=== PATIENT | male | born 1940 | race Two or more races ===

== ENCOUNTER 2018-04-27 18:13 | Emergency (ER) | payer OTHER ==
[2018-04-27 18:32] VITALS: BMI 35.4
--- NOTE | 2018-04-27 19:26 | PDOC ---
History of Present Illness - General Chief Complaint: Altered Mental Status Stated Complaint: ALTERED MENTAL STATUS Time Seen by Provider: 04/27/18 19:26 Past History - Past Medical History Allergies/Adverse Reactions: Allergies Allergy/AdvReac Type Severity Reaction Status Date / Time No Known Drug Allergies Allergy Verified 04/27/18 18:29 Home Medications: Ambulatory Orders Amlodipine Besylate [Norvasc] 10 mg PO DAILY 04/26/11 Acetaminophen [Non-Aspirin Pain Relief] 325 mg PO Q4H PRN 09/14/13 Ciprofloxacin [Cipro -] 500 mg PO Q12H 09/14/13 Glipizide [Glipizide ER] 10 mg PO BID 09/14/13 Metoprolol Succinate [Toprol XL -] 100 mg PO DAILY 09/14/13 Phenazopyridine HCl 100 mg PO TID 09/14/13 Anemia: No Asthma: No Cancer: No Cardiac Disorders: Yes CVA: No COPD: No CHF: No Dementia: No Diabetes: Yes GI Disorders: Yes (REFLUX) Disorders: Yes (GROSS HEMATURIA) HTN: Yes Hypercholesterolemia: No Liver Disease: No Seizures: No Thyroid Disease: No - Surgical History Abdominal Surgery: No Appendectomy: No Cardiac Surgery: No Cholecystectomy: No Lung Surgery: No Neurologic Surgery: No Orthopedic Surgery: No - Suicide/Smoking/Psychosocial Hx Smoking History: Never smoked Have you smoked in the past 12 months: No If you are a former smoker, when did you quit?: 1 MONTH AGO Cigars Per Day: 5 Information on smoking cessation initiated: No Hx Alcohol Use: No Drug/Substance Use Hx: No Substance Use Type: None Hx Substance Use Treatment: No *Physical Exam - Vital Signs Last Vital Signs Temp Pulse Resp BP Pulse Ox 98 F 69 16 158/80 96 04/27/18 18:15 04/27/18 18:15 04/27/18 18:15 04/27/18 18:15 04/27/18 18:15 Moderate Sedation - Procedure Monitoring Vital Signs: Procedure Monitoring Vital Signs Temperature 98 F 04/27/18 18:15 Pulse Rate 69 04/27/18 18:15 Respiratory Rate 16 04/27/18 18:15 Blood Pressure 158/80 04/27/18 18:15 O2 Sat by Pulse Oximetry (%) 96 04/27/18 18:15 ED Treatment Course - ADDITIONAL ORDERS Additional order review: Laboratory Results 04/27/18 18:21 POC Glucometer 99 04/27/18 18:21 POC Glucometer 99
--- NOTE | 2018-04-27 20:05 | PDOC ---
History of Present Illness - General Chief Complaint: Altered Mental Status Stated Complaint: ALTERED MENTAL STATUS Time Seen by Provider: 04/27/18 19:26 History Source: Patient, EMS, [facility] Records Exam Limitations: No Limitations - History of Present Illness Initial Comments: 04/27/18 20:02 THe patient is a 77M with a PMH of DM, traumatic subdural, GERD, HLD, seizures, cerebral infarction, dementia, who presents to the ER after being found hypertensive in the MD ([facility]). During this hypertensive episode, the patient remembers being diaphoretic and was found to have a BGL of <30 and given 1mg glucagon with f/u BGL in the 80's. The patient denies fever, chills, nausea, vomiting, CP, SOB, cough, and dysuria. He denies any other acute complaints. Past History - Past Medical History Allergies/Adverse Reactions: Allergies Allergy/AdvReac Type Severity Reaction Status Date / Time No Known Drug Allergies Allergy Verified 04/27/18 18:29 Home Medications: Ambulatory Orders Amantadine HCl [Amantadine] 100 mg PEG BID 04/27/18 Amlodipine Besylate 10 mg PEG DAILY 04/27/18 Carvedilol 25 mg PEG BID 04/27/18 Famotidine 40 mg PEG DAILY 04/27/18 Insulin Lispro [Humalog] 0 unit SQ ASDIR 04/27/18 Insulin NPH [Novolin N Vial] 16 units SQ QID 04/27/18 Oxycodone HCl 10 mg PEG PRN PRN 04/27/18 Phenytoin Oral Suspension [Dilantin Oral Suspension 100 MG/4 ML] 300 mg PEG BID 04/27/18 Polyethylene Glycol 3350 [Miralax (For Daily Use) -] 17 gm PEG DAILY 04/27/18 Sennosides [Senna] 8.6 mg PEG DAILY 04/27/18 Simvastatin 20 mg PEG HS 04/27/18 levETIRAcetam [Keppra Oral Solution -] 1,000 mg PEG BID 04/27/18 Anemia: No Asthma: No Cancer: No Cardiac Disorders: Yes CVA: No COPD: No CHF: No Dementia: No Diabetes: Yes GI Disorders: Yes (REFLUX) Disorders: Yes (GROSS HEMATURIA) HTN: Yes Hypercholesterolemia: No Liver Disease: No Seizures: No Thyroid Disease: No - Surgical History Abdominal Surgery: No Appendectomy: No Cardiac Surgery: No Cholecystectomy: No Lung Surgery: No Neurologic Surgery: No Orthopedic Surgery: No - Suicide/Smoking/Psychosocial Hx Smoking History: Never smoked Have you smoked in the past 12 months: No If you are a former smoker, when did you quit?: 1 MONTH AGO Cigars Per Day: 5 Information on smoking cessation initiated: No Hx Alcohol Use: No Drug/Substance Use Hx: No Substance Use Type: None Hx Substance Use Treatment: No Review of Systems - Review of Systems Able to Perform ROS?: No (AMS) Is the patient limited Kazakh proficient: Yes *Physical Exam - Vital Signs Last Vital Signs Temp Pulse Resp BP Pulse Ox 98 F 69 16 158/80 96 04/27/18 18:15 04/27/18 18:15 04/27/18 18:15 04/27/18 18:15 04/27/18 18:15 - Physical Exam General Appearance: Yes: Nourished, Appropriately Dressed. No: Disheveled HEENT: positive: Normal Voice, Hearing Grossly Normal Respiratory/Chest: positive: Lungs Clear, Normal Breath Sounds. negative: Chest Tender Cardiovascular: positive: Regular Rhythm, Regular Rate, S1, S2. negative: Diastolic Murmur, Systolic Murmur Gastrointestinal/Abdominal: positive: Flat, Soft. negative: Tender Musculoskeletal: negative: CVA Tenderness, CVA Tenderness (R), CVA Tenderness (L ) Integumentary: negative: Erythema, Mottled, Cold, Clammy, Diaphoresis Moderate Sedation - Procedure Monitoring Vital Signs: Procedure Monitoring Vital Signs Temperature 98 F 04/27/18 18:15 Pulse Rate 69 04/27/18 18:15 Respiratory Rate 16 04/27/18 18:15 Blood Pressure 158/80 04/27/18 18:15 O2 Sat by Pulse Oximetry (%) 96 04/27/18 18:15 ED Treatment Course - LABORATORY CBC & Chemistry Diagram: 04/27/18 20:38 04/27/18 20:38 - ADDITIONAL ORDERS Additional order review: Laboratory Results 04/27/18 18:21 POC Glucometer 99 04/27/18 18:21 POC Glucometer 99 - RADIOLOGY Radiology Studies Ordered: Category Date Time Status HEAD CT WITHOUT CONTRAST [CT] Stat CT Scan 04/27/18 19:55 Ordered CHEST X-RAY PORTABLE* [RAD] Stat Radiology 04/27/18 19:55 Ordered Medical Decision Making - Medical Decision Making 04/27/18 21:39 The patient is a 77M with a PMH of MMP who presents to the ER after being found hypertensive in his NH with a low FS. FS in our facility was in the 90's, then in the 70's. Pt is on a glipizide which can cause recurrent hypoglycemic episodes. Given amp of D50. 04/27/18 22:58 FS 113 after D50 at ~2000. Will recheck at 0100 and d/w inpatient team. CBC, CMP , UA, trop negative. 04/28/18 01:31 BG 80. Will admit for hypoglycemic monitoring. Inpt team aware. 04/28/18 01:55 Case d/w inpatient team who does not believe he needs to be observed for BGL. Will give D50 and d/c back to NH. *DC/Admit/Observation/Transfer Diagnosis at time of Disposition: Hypoglycemia - Discharge Dispostion Disposition: HOME Condition at time of disposition: Stable Decision to Admit order: No - Referrals - Patient Instructions Printed Discharge Instructions: Hypoglycemia Additional Instructions: Please discontinue the glipizide and refer to primary care for further diabetic management. Please follow up with your primary care physician in 2-3 days. Please return to the ER if you have any signs or symptoms of chest pain, shortness of breath, uncontrollable fever, chills, nausea, vomiting, numbness, tingling, or weakness in any part of your body, changes in vision, or slurred speech. Please take your medications as prescribed. Please return to the ER if symptoms persist, worsen, or new symptoms arise. - Post Discharge Activity
--- NOTE | 2018-04-27 20:06 | PDOC ---
Attending Attestation - Physicial Exam PE: 04/27/18 20:56 GENERAL: Well-appearing, well-nourished. No apparent distress. HEENT: Normocephalic, atraumatic. PERRL, EOM intact. CARDIOVASCULAR: Normal S1, S2. Regular rate and rhythm. PULMONARY: Clear to auscultation bilaterally. ABDOMEN: Soft, non-distended, non-tender. EXTREMITIES: Normal ROM in all four extremities. No gross deformities. +SKIN: Dry, scaly skin. NEUROLOGICAL: Follows basic commands. - Medical Decision Making 04/28/18 01:35 Patient will be admitted to hospitalist for further evaluation. <Serene Aguilar - Last Filed: 04/28/18 01:37> - Resident Resident Name: Joshua Valdes - ED Attending Attestation I have performed the following: I have examined & evaluated the patient, The case was reviewed & discussed with the resident, I agree w/resident's findings & plan, Exceptions are as noted - HPI HPI: 04/27/18 20:29 this 77 yo male [facility] fr[facility] for hyperglycemia and hypertension [facility]. Upon arrival his BP was about 158/90 but he was hypoglycemic and had received glucagon before arrival -he has a history of subdural hemorrhage -he was able to follow simple commands - Medical Decision Making 04/27/18 20:41 is at bedside and did state that they gave him his insulin today even thought his bmg was only 150 at the prison 04/28/18 02:29 pt received dextrose IV and observed for 8 hours imp: hypoglycemic episode, improved spoke with nurse at [facility] and discussed results/ pt discharged <Khushboo Chen - Last Filed: 04/28/18 02:30> Attestations - Attestations 04/27/18 20:59 Documentation prepared by Serene Aguilar, acting as director medical safety for Khushboo Chen MD. <Serene Aguilar - Last Filed: 04/28/18 01:37>
[2018-04-27] MEDS ORDERED: DEXTROSE 50%-WATER - 25 GM/50 ML VIAL IVPUSH ONE (20:12)
[2018-04-27 20:17] LABS: URINE APPEARANCE SLCLOUDY; URINE BILIRUBIN NEGATIVE (<2.0 mg/dL); URINE COLOR LTYELLOW; URINE GLUCOSE (UA) NEGATIVE (NEGATIVE); URINE KETONE NEGATIVE (NEGATIVE); URINE LEUK ESTERASE NEGATIVE (NEGATIVE); URINE NITRITE NEGATIVE (NEGATIVE); URINE PROTEIN 1+ (NEGATIVE); URINE UROBILINOGEN NEGATIVE mg/dL (0.2-1.0)
[2018-04-27] MEDS ORDERED: DEXTROSE 50%-WATER 25 GM/50 ML DISP.SYRIN ONE (20:44)
[2018-04-27 20:54] LABS: URINE BACTERIA RARE /hpf (NONE SEEN); URINE MUCUS RARE
[2018-04-27 20:55] LABS: BASO % 0.4 % (0-2.0); EOS % 0.9 % (0-4.5); HEMATOCRIT 38.9 % (35.4-49); HEMOGLOBIN 13.6 GM/dL (11.7-16.9); LYMPH % 13.9 % (8-40); MCHC 34.9 g/dl (32.0-35.9); MEAN CELL VOLUME 91.8 fl (80-96); MEAN PLT VOLUME 8.7 fl (7.5-11.1); MONO % 8.4 % (3.8-10.2); NEUT % 76.4 % (42.8-82.8); PLATELET COUNT 196 K/MM3 (134-434); RBC 4.24 M/mm3 (4.00-5.60); RDW 16.6 % (11.9-15.9); WHITE BLOOD COUNT 15.1 K/mm3 (4.0-10.0)
[2018-04-27 21:10] LABS: INR 1.11 (0.83-1.09); PROTHROMBIN TIME (PATIENT) 13.1 SEC (9.7-13.0)
[2018-04-27 21:37] LABS: ALBUMIN 3.6 g/dl (3.4-5.0); ALK PHOS 188 U/L (45-117); ANION GAP 9 MMOL/L (8-16); BILIRUBIN,TOTAL 0.4 mg/dL (0.2-1); BLOOD UREA NITROGEN 25 mg/dL (7-18); CALCIUM 9.1 mg/dL (8.5-10.1); CHLORIDE 105 mmol/L (98-107); CO2 27 mmol/L (21-32); CREATININE 0.8 mg/dL (0.55-1.3); GLUCOSE,RANDOM 74 mg/dL (74-106); POTASSIUM 3.7 mmol/L (3.5-5.1); SGOT/AST 14 U/L (15-37); SGPT/ALT 31 U/L (13-61); SODIUM 141 mmol/L (136-145); TOT PROT 6.8 g/dl (6.4-8.2)
[2018-04-28] MEDS ORDERED: DEXTROSE 50%-WATER - 25 GM/50 ML VIAL IVPUSH ONE (01:41)
[2018-04-28] MEDS ORDERED: DEXTROSE 50%-WATER - 25 GM/50 ML VIAL ONE (01:54)
[2018-04-28 03:59] VITALS: BP 157/88; PULSE 84
[2018-04-28 04:01] VITALS: TEMP 98.2
--- NOTE | 2018-04-28 16:31 | EKG ---
Test Reason : Blood Pressure : / mmHG Vent. Rate : 067 BPM Atrial Rate : 067 BPM P-R Int : 188 ms QRS Dur : 084 ms QT Int : 404 ms P-R-T Axes : 027 064 062 degrees QTc Int : 426 ms NORMAL SINUS RHYTHM WHEN COMPARED WITH ECG OF 06-DEC-2004 18:20, CURRENT UNDETERMINED RHYTHM PRECLUDES RHYTHM COMPARISON, NEEDS REVIEW NON-SPECIFIC CHANGE IN ST SEGMENT IN INFERIOR LEADS NONSPECIFIC T WAVE ABNORMALITY NO LONGER EVIDENT IN INFERIOR LEADS NONSPECIFIC T WAVE ABNORMALITY NO LONGER EVIDENT IN ANTEROLATERAL LEADS Confirmed by Isai Gamboa ([id number]) on 04/28/2018 4:30:43 PM Referred By: Confirmed By:Isai Gamboa
== END 2018-04-28 04:46 | disposition home or self-care (01) ==
LOC: JER 18:13 → UNDOADMOB 04-28 01:32 → JERBED 04-28 01:32 → JER 04-28 04:46
PROC: 3E033GC Introduction of Other Therapeutic Substance into Peripheral Vein, Percutaneous Approach (ICD-10-PCS; principal; 2018-04-27)
DX: E11.649 Type 2 diabetes mellitus with hypoglycemia without coma (principal); Z79.4 Long term (current) use of insulin; Z79.84 Long term (current) use of oral hypoglycemic drugs; E78.5 Hyperlipidemia, unspecified; K21.9 Gastro-esophageal reflux disease without esophagitis; F03.90 Unspecified dementia, unspecified severity, without behavioral disturbance, psychotic disturbance, mood disturbance, and anxiety; Z87.820 Personal history of traumatic brain injury; Z86.69 Personal history of other diseases of the nervous system and sense organs
CPT/HCPCS: 36415; 70450-TC; 71045-TC-FY; 80053; 81003; 81015; 82550; 82962; 84484; 85025; 85610; 87086; 93005; 93010; 96374; 96376; 99283-25

== ENCOUNTER 2019-01-22 20:06 | Emergency (ER) | payer OTHER ==
--- NOTE | 2019-01-22 20:28 | PDOC ---
History of Present Illness - General Stated Complaint: SICK Time Seen by Provider: 01/22/19 20:25 History Source: Patient, Family Past History - Past Medical History Allergies/Adverse Reactions: Allergies Allergy/AdvReac Type Severity Reaction Status Date / Time No Known Drug Allergies Allergy Verified 04/27/18 18:29 Home Medications: Ambulatory Orders Amantadine HCl [Amantadine] 100 mg PEG BID 04/27/18 Amlodipine Besylate 10 mg PEG DAILY 04/27/18 Carvedilol 25 mg PEG BID 04/27/18 Famotidine 40 mg PEG DAILY 04/27/18 Insulin Lispro [Humalog] 0 unit SQ ASDIR 04/27/18 Insulin NPH [Novolin N Vial] 16 units SQ QID 04/27/18 Oxycodone HCl 10 mg PEG PRN PRN 04/27/18 Phenytoin Oral Suspension [Dilantin Oral Suspension 100 MG/4 ML] 300 mg PEG BID 04/27/18 Polyethylene Glycol 3350 [Miralax (For Daily Use) -] 17 gm PEG DAILY 04/27/18 Sennosides [Senna] 8.6 mg PEG DAILY 04/27/18 Simvastatin 20 mg PEG HS 04/27/18 levETIRAcetam [Keppra Oral Solution -] 1,000 mg PEG BID 04/27/18 Azithromycin 250 mg PO DAILY #6 tablet 01/23/19 Cefpodoxime Proxetil [Vantin -] 200 mg PO Q12H #20 tablet 01/23/19 Anemia: No Asthma: No Cancer: No Cardiac Disorders: Yes CVA: No COPD: No CHF: No Dementia: No Diabetes: Yes GI Disorders: Yes (REFLUX) Disorders: Yes (GROSS HEMATURIA) HTN: Yes Hypercholesterolemia: No Liver Disease: No Seizures: No Thyroid Disease: No - Surgical History Abdominal Surgery: No Appendectomy: No Cardiac Surgery: No Cholecystectomy: No Lung Surgery: No Neurologic Surgery: No Orthopedic Surgery: No - Psycho Social/Smoking Cessation Hx Smoking History: Former smoker Have you smoked in the past 12 months: No If you are a former smoker, when did you quit?: 1 MONTH AGO Cigars Per Day: 5 Hx Alcohol Use: No Drug/Substance Use Hx: No Substance Use Type: None Hx Substance Use Treatment: No ED Treatment Course - LABORATORY CBC & Chemistry Diagram: 01/22/19 22:32 01/22/19 22:32 Discharge - Discharge Information Problems reviewed: Yes Clinical Impression/Diagnosis: Pneumonia Qualifiers: Pneumonia type: due to unspecified organism Laterality: right Lung location: unspecified part of lung Qualified Code(s): J18.9 - Pneumonia, unspecified organism Condition: Stable Disposition: HOME - Admission No - Additional Discharge Information Prescriptions: Azithromycin 250 mg PO DAILY #6 tablet Cefpodoxime Proxetil [Vantin -] 200 mg PO Q12H #20 tablet - Follow up/Referral Referrals: Barry Mantilla [Primary Care Provider] - - Patient Discharge Instructions Patient Printed Discharge Instructions: DI for Pneumonia -- Adult Additional Instructions: Usted fue evaluado en la yazmin de urgencias despues de cha caida. Quick examen fisico, niveles de dada, y oliva x demuestran cha pneumonia. Por favor tome a davy antibioticos xiomara dirigido, con comida. Regresa a la yazmin de urgencias si empiezas a tener fiebres altas, confusion, dolor de pecho, dificultad en respirar, o si tienes otras sintomas que le preocupan. Por favor ve a quick doctor de cabezera lo mas pronto posible, entre 4 wing. - Post Discharge Activity
[2019-01-22] MEDS ORDERED: LACTATED RINGERS SOLUTION 1000 ML INFUS.BAG IV ONE (20:48)
[2019-01-22] MEDS ORDERED: FAMOTIDINE 20 MG/50 ML IVPB 20 MG/50 ML MG IVPB ONE ×2 (20:56→21:09)
[2019-01-22 20:57] VITALS: BMI 31.3
[2019-01-22] MEDS ORDERED: ACETAMINOPHEN 500 MG TABLET (FP) PO ONE (21:00)
[2019-01-22] MEDS ORDERED: ACETAMINOPHEN 325 MG TABLET (FP) ONE (21:09)
[2019-01-22 22:45] LABS: BASO % 0.4 % (0-2.0); EOS % 0.3 % (0-4.5); HEMATOCRIT 41.4 % (35.4-49); LYMPH % 17.4 % (8-40); MCHC 33.9 g/dl (32.0-35.9); MEAN CELL VOLUME 88.5 fl (80-96); MEAN PLT VOLUME 8.5 fl (7.5-11.1); MONO % 12.3 % (3.8-10.2); NEUT % 69.6 % (42.8-82.8); PLATELET COUNT 224 K/MM3 (134-434); RBC 4.68 M/mm3 (4.00-5.60); RDW 13.3 % (11.9-15.9)
[2019-01-22 23:07] LABS: ALBUMIN 3.7 g/dl (3.4-5.0); BILIRUBIN,TOTAL 0.6 mg/dL (0.2-1); BLOOD UREA NITROGEN 15.2 mg/dL (7-18); CALCIUM 9.3 mg/dL (8.5-10.1); CREATININE 1.4 mg/dL (0.55-1.3); POTASSIUM 3.4 mmol/L (3.5-5.1)
[2019-01-22 23:28] VITALS: PULSE 94; TEMP 97.4
[2019-01-22 23:36] LABS: EPI CELLS 0.1 /HPF (0-5/HPF); HYALINE CASTS 0 /lpf (0-8); PH,URINE 5.5 (5.0-8.0); URINE APPEARANCE CLEAR; URINE BACTERIA 1.5 /hpf (NEGATIVE); URINE BILIRUBIN NEGATIVE (NEGATIVE); URINE COLOR YELLOW; URINE GLUCOSE (UA) NEGATIVE (NEGATIVE); URINE KETONE NEGATIVE (NEGATIVE); URINE LEUK ESTERASE NEGATIVE (NEGATIVE); URINE NITRITE NEGATIVE (NEGATIVE); URINE PROTEIN 1+ (NEGATIVE); URINE RBC 1 /hpf (0-4); URINE UROBILINOGEN 0.2 mg/dL (0.2-1.0); URINE WBC 0 /hpf (0-5)
[2019-01-23] MEDS ORDERED: CEFTRIAXONE 1 GM/50 ML BAG ONE (00:08)
[2019-01-23 00:59] VITALS: BP 143/90
--- NOTE | 2019-01-23 11:31 | EKG ---
Test Reason : Blood Pressure : / mmHG Vent. Rate : 113 BPM Atrial Rate : 113 BPM P-R Int : 162 ms QRS Dur : 074 ms QT Int : 330 ms P-R-T Axes : 044 071 048 degrees QTc Int : 452 ms POOR DATA QUALITY, INTERPRETATION MAY BE ADVERSELY AFFECTED SINUS TACHYCARDIA OTHERWISE NORMAL ECG WHEN COMPARED WITH ECG OF 27-APR-2018 18:30, VENT. RATE HAS INCREASED BY 46 BPM Confirmed by GEMA MEDRANO, RICHARD ([id number]) on 01/23/2019 11:30:47 AM Referred By: Confirmed By:RICHARD RIBEIRO MD
== END 2019-01-23 01:33 | disposition home or self-care (01) ==
LOC: JER 20:06
PROC: 3E03329 Introduction of Other Anti-infective into Peripheral Vein, Percutaneous Approach (ICD-10-PCS; principal; 2019-01-22)
PROC: 3E0337Z Introduction of Electrolytic and Water Balance Substance into Peripheral Vein, Percutaneous Approach (ICD-10-PCS; 2019-01-22)
PROC: 3E033GC Introduction of Other Therapeutic Substance into Peripheral Vein, Percutaneous Approach (ICD-10-PCS; 2019-01-22)
DX: J18.9 Pneumonia, unspecified organism (principal); I10 Essential (primary) hypertension; E11.9 Type 2 diabetes mellitus without complications; G40.909 Epilepsy, unspecified, not intractable, without status epilepticus; K21.9 Gastro-esophageal reflux disease without esophagitis; G31.84 Mild cognitive impairment of uncertain or unknown etiology; Z79.4 Long term (current) use of insulin; Z87.891 Personal history of nicotine dependence
CPT/HCPCS: 36415; 71045-TC-FY; 80053; 81003; 85025; 87086; 87186; 93005; 93010; 96365; 96375; 99285-25

== ENCOUNTER 2021-07-07 10:44 | Emergency (ER) | payer OTHER ==
[2021-07-07 11:01] VITALS: BMI 31.0
[2021-07-07] MEDS ORDERED: ACETAMINOPHEN 1000 MG/100 ML BAG IVPB ONE (11:46)
[2021-07-07] MEDS ORDERED: ACETAMINOPHEN INJECTION 100 ML IVPB ONE (12:08)
[2021-07-07 13:54] LABS: BASO % 0.3 % (0-2.0); EOS % 0.2 % (0-4.5); HEMATOCRIT 41.1 % (35.4-49); HEMOGLOBIN 13.2 GM/dL (11.7-16.9); LYMPH % 11.4 % (8-40); MCH 26.8 pg (25.7-33.7); MEAN CELL VOLUME 83.9 fl (80-96); MEAN PLT VOLUME 8.1 fl (7.5-11.1); MONO % 9.7 % (3.8-10.2); NEUT % 78.4 % (42.8-82.8); PLATELET COUNT 283 10^3/uL (134-434); RDW 16.5 % (11.9-15.9); WHITE BLOOD COUNT 18.6 K/mm3 (4.0-10.0)
[2021-07-07 14:05] LABS: INR 1.14 (0.83-1.09); PROTHROMBIN TIME (PATIENT) 13.1 SEC (9.7-13.0)
[2021-07-07 14:08] LABS: ACTIVATED PTT 40.9 SECONDS (25.2-36.5)
[2021-07-07 14:25] LABS: BLOOD UREA NITROGEN 14.5 mg/dL (7-18); CALCIUM 9.7 mg/dL (8.5-10.1)
[2021-07-07 14:26] LABS: ALBUMIN 3.6 g/dl (3.4-5.0)
[2021-07-07 14:27] LABS: CREATININE 1.1 mg/dL (0.55-1.3)
[2021-07-07 14:29] LABS: BILIRUBIN,TOTAL 0.8 mg/dL (0.2-1); TOT PROT 7.5 g/dl (6.4-8.2)
[2021-07-07 19:33] VITALS: BP 179/74; PULSE 82; TEMP 98.1
== END 2021-07-07 19:33 | disposition short-term general hospital (02) ==
LOC: JER 10:44
PROC: 3E0333Z Introduction of Anti-inflammatory into Peripheral Vein, Percutaneous Approach (ICD-10-PCS; principal; 2021-07-07)
DX: S32.039A Unspecified fracture of third lumbar vertebra, initial encounter for closed fracture (principal); Y99.9 Unspecified external cause status
CPT/HCPCS: 36415; 71045-TC-FY; 72148-TC; 80053; 82962; 85025; 85610; 85730; 86850; 86900; 86901; 93005; 93010; 96374; 99284-25

== ENCOUNTER 2021-07-16 14:20 | Inpatient (IN) | payer OTHER ==
[2021-07-16 16:05] LABS: BASO % 0.1 % (0-2.0); EOS % 0.2 % (0-4.5); HEMATOCRIT 39.1 % (35.4-49); HEMOGLOBIN 12.8 GM/dL (11.7-16.9); LYMPH % 17.7 % (8-40); MCH 27.5 pg (25.7-33.7); MCHC 32.7 g/dl (32.0-35.9); MEAN CELL VOLUME 84.1 fl (80-96); MEAN PLT VOLUME 7.8 fl (7.5-11.1); MONO % 11.2 % (3.8-10.2); NEUT % 70.8 % (42.8-82.8); PLATELET COUNT 323 10^3/uL (134-434); RBC 4.65 M/mm3 (4.00-5.60); RDW 16.2 % (11.9-15.9); WHITE BLOOD COUNT 15.8 K/mm3 (4.0-10.0)
[2021-07-16 16:41] LABS: CALCIUM 9.4 mg/dL (8.5-10.1)
[2021-07-16 16:42] LABS: ALBUMIN 3.5 g/dl (3.4-5.0); BLOOD UREA NITROGEN 35.7 mg/dL (7-18)
[2021-07-16 16:45] LABS: CREATININE 1.4 mg/dL (0.55-1.3)
[2021-07-16 16:46] LABS: BILIRUBIN,TOTAL 0.3 mg/dL (0.2-1); TOT PROT 7.1 g/dl (6.4-8.2)
[2021-07-16] MEDS ORDERED: ACETAMINOPHEN 325 MG TABLET (FP) PO PRN (17:18)
[2021-07-16] MEDS ORDERED: oxyCODONE HCL 5 MG TABLET PO SCH (17:45)
[2021-07-16] MEDS ORDERED: PATIENT'S OWN MEDICATION (NON-FORMULARY) (Enzalutamide [Xtandi] 80 MG Tablet) PO SCH (17:45)
[2021-07-16 18:29] LABS: URINE APPEARANCE CLEAR; URINE BILIRUBIN NEGATIVE (NEGATIVE); URINE COLOR YELLOW; URINE GLUCOSE (UA) NEGATIVE (NEGATIVE); URINE KETONE NEGATIVE (NEGATIVE); URINE LEUK ESTERASE NEGATIVE (NEGATIVE); URINE NITRITE NEGATIVE (NEGATIVE); URINE PROTEIN NEGATIVE (NEGATIVE); URINE UROBILINOGEN 0.2 mg/dL (0.2-1.0)
[2021-07-16] MEDS ORDERED: ESCITALOPRAM OXALATE 10 MG TABLET ONE (18:39)
[2021-07-16] MEDS ORDERED: amLODIPine BESYLATE 10 MG TABLET (FP) ONE (18:39)
[2021-07-16] MEDS: amLODIPine BESYLATE 10 MG TABLET (FP) PO SCH (18:44)
[2021-07-16] MEDS: ESCITALOPRAM OXALATE 10 MG TABLET PO SCH (18:44)
[2021-07-16] MEDS ORDERED: PHENYTOIN 100 MG/4 ML U-D CUP PEG SCH (22:00)
[2021-07-16] MEDS ORDERED: TAMSULOSIN HCL 0.4 MG CAP ONE (22:28)
[2021-07-16] MEDS ORDERED: MONTELUKAST NA 10 MG TABLET ONE (22:28)
[2021-07-16] MEDS ORDERED: levETIRAcetam 500 MG TABLET (FP) PO ONE (22:28)
[2021-07-16] MEDS ORDERED: HEPARIN NA (PORCINE) 5,000 UNITS/ML 1ML VIAL ONE (22:29)
[2021-07-16] MEDS ORDERED: GABAPENTIN 100 MG CAPSULE ONE (22:29)
[2021-07-16] MEDS: TAMSULOSIN HCL 0.4 MG CAP PO SCH (22:37)
[2021-07-16] MEDS: HEPARIN NA (PORCINE) 5,000 UNITS/ML 1ML VIAL SQ SCH (22:37)
[2021-07-16] MEDS: INSULIN SLIDING SCALE (NOVOLOG) 1 VIAL SQ SCH (22:38)
[2021-07-16] MEDS: levETIRAcetam 500 MG/5 ML ORAL SOLUTION (UNIT-DOSE CUPS) PO SCH (22:38)
[2021-07-16] MEDS: GABAPENTIN 100 MG CAPSULE PO SCH (22:38)
[2021-07-16] MEDS: MONTELUKAST NA 10 MG TABLET PO SCH (22:38)
[2021-07-16 22:46] LABS: URINE APPEARANCE CLEAR; URINE BILIRUBIN NEGATIVE (NEGATIVE); URINE COLOR YELLOW; URINE GLUCOSE (UA) NEGATIVE (NEGATIVE); URINE KETONE NEGATIVE (NEGATIVE); URINE LEUK ESTERASE NEGATIVE (NEGATIVE); URINE NITRITE NEGATIVE (NEGATIVE); URINE PROTEIN NEGATIVE (NEGATIVE); URINE UROBILINOGEN 0.2 mg/dL (0.2-1.0)
[2021-07-17 01:28] VITALS: BMI 25.6
[2021-07-17] MEDS: PHENYTOIN 100 MG/4 ML U-D CUP PO SCH ×3 (02:45→23:34)
[2021-07-17] MEDS: HEPARIN NA (PORCINE) 5,000 UNITS/ML 1ML VIAL SQ SCH ×3 (06:07→23:34)
[2021-07-17] MEDS: GABAPENTIN 100 MG CAPSULE PO SCH ×3 (06:07→23:34)
[2021-07-17] MEDS: INSULIN SLIDING SCALE (NOVOLOG) 1 VIAL SQ SCH ×4 (06:08→23:42)
[2021-07-17 09:15] LABS: BASO % 0.2 % (0-2.0); EOS % 0.3 % (0-4.5); HEMOGLOBIN 11.7 GM/dL (11.7-16.9); LYMPH % 20.4 % (8-40); MCH 27.3 pg (25.7-33.7); MCHC 32.6 g/dl (32.0-35.9); MEAN CELL VOLUME 83.7 fl (80-96); MEAN PLT VOLUME 8.1 fl (7.5-11.1); MONO % 7.9 % (3.8-10.2); NEUT % 71.2 % (42.8-82.8); PLATELET COUNT 299 10^3/uL (134-434); RDW 16.2 % (11.9-15.9); WHITE BLOOD COUNT 12.3 K/mm3 (4.0-10.0)
[2021-07-17 09:37] LABS: ALBUMIN 3.2 g/dl (3.4-5.0); CALCIUM 9.3 mg/dL (8.5-10.1)
[2021-07-17 09:38] LABS: MAGNESIUM 2.3 mg/dL (1.8-2.4)
[2021-07-17 09:40] LABS: CREATININE 1.2 mg/dL (0.55-1.3); PHOSPHOROUS 4.6 mg/dL (2.5-4.9)
[2021-07-17 09:42] LABS: BILIRUBIN,TOTAL 0.3 mg/dL (0.2-1)
[2021-07-17] MEDS: levETIRAcetam 500 MG/5 ML ORAL SOLUTION (UNIT-DOSE CUPS) PO SCH ×2 (09:58→23:34)
[2021-07-17] MEDS: ESCITALOPRAM OXALATE 10 MG TABLET PO SCH (09:58)
[2021-07-17] MEDS: amLODIPine BESYLATE 10 MG TABLET (FP) PO SCH (09:58)
[2021-07-17] MEDS ORDERED: SODIUM CHLORIDE 1,000 ML IV SCH (10:30)
[2021-07-17] MEDS ORDERED: POLYETHYLENE GLYCOL 3350 119 GM BTL PO SCH (10:45)
[2021-07-17] MEDS: VITAMIN B COMPLEX W/C COMBO TABLET (FP) PO SCH (13:12)
[2021-07-17] MEDS ORDERED: SODIUM CHLORIDE 0.45% 1,000 ML IV SCH (14:45)
[2021-07-17] MEDS: TAMSULOSIN HCL 0.4 MG CAP PO SCH (20:43)
[2021-07-17] MEDS: SENNOSIDES 8.6MG TABLET (FP) PO SCH (23:33)
[2021-07-17] MEDS: MONTELUKAST NA 10 MG TABLET PO SCH (23:33)
[2021-07-18] MEDS: HEPARIN NA (PORCINE) 5,000 UNITS/ML 1ML VIAL SQ SCH ×3 (07:09→21:25)
[2021-07-18] MEDS: GABAPENTIN 100 MG CAPSULE PO SCH ×3 (07:09→21:20)
[2021-07-18] MEDS: INSULIN SLIDING SCALE (NOVOLOG) 1 VIAL SQ SCH ×4 (07:13→21:27)
[2021-07-18 08:10] LABS: BASO % 0.3 % (0-2.0); EOS % 0.9 % (0-4.5); HEMATOCRIT 35.6 % (35.4-49); HEMOGLOBIN 11.7 GM/dL (11.7-16.9); MCH 27.6 pg (25.7-33.7); MEAN CELL VOLUME 83.6 fl (80-96); MEAN PLT VOLUME 7.9 fl (7.5-11.1); MONO % 8.6 % (3.8-10.2); NEUT % 68.2 % (42.8-82.8); PLATELET COUNT 294 10^3/uL (134-434); RBC 4.26 M/mm3 (4.00-5.60); RDW 16.2 % (11.9-15.9); WHITE BLOOD COUNT 11.5 K/mm3 (4.0-10.0)
[2021-07-18 08:20] LABS: ALBUMIN 2.9 g/dl (3.4-5.0); BLOOD UREA NITROGEN 29.9 mg/dL (7-18); CALCIUM 8.8 mg/dL (8.5-10.1); MAGNESIUM 2.3 mg/dL (1.8-2.4)
[2021-07-18 08:23] LABS: CREATININE 1.1 mg/dL (0.55-1.3)
[2021-07-18 08:24] LABS: PHOSPHOROUS 4.3 mg/dL (2.5-4.9)
[2021-07-18 08:25] LABS: BILIRUBIN,TOTAL 0.2 mg/dL (0.2-1); TOT PROT 5.8 g/dl (6.4-8.2)
[2021-07-18] MEDS ORDERED: oxyCODONE HCL 5 MG TABLET PO PRN (09:17)
[2021-07-18] MEDS: PANTOPRAZOLE 40 MG TABLET PO SCH (10:18)
[2021-07-18] MEDS: POLYETHYLENE GLYCOL (HEALTHYLAX) 3350 17 GM PACKET PO SCH (10:18)
[2021-07-18] MEDS: ESCITALOPRAM OXALATE 10 MG TABLET PO SCH (10:19)
[2021-07-18] MEDS: levETIRAcetam 500 MG/5 ML ORAL SOLUTION (UNIT-DOSE CUPS) PO SCH ×2 (10:19→21:26)
[2021-07-18] MEDS: amLODIPine BESYLATE 10 MG TABLET (FP) PO SCH (10:19)
[2021-07-18] MEDS: PHENYTOIN 100 MG/4 ML U-D CUP PO SCH ×2 (10:20→21:24)
[2021-07-18] MEDS: VITAMIN B COMPLEX W/C COMBO TABLET (FP) PO SCH (10:21)
[2021-07-18] MEDS: TAMSULOSIN HCL 0.4 MG CAP PO SCH (20:09)
[2021-07-18] MEDS ORDERED: INSULIN (NOVOLOG) ASPART 100 UNITS/ML 10ML VIAL ONE (20:50)
[2021-07-18] MEDS: SENNOSIDES 8.6MG TABLET (FP) PO SCH (21:20)
[2021-07-18] MEDS: MONTELUKAST NA 10 MG TABLET PO SCH (21:20)
[2021-07-19] MEDS: HEPARIN NA (PORCINE) 5,000 UNITS/ML 1ML VIAL SQ SCH ×2 (06:09→13:32)
[2021-07-19] MEDS: INSULIN SLIDING SCALE (NOVOLOG) 1 VIAL SQ SCH ×2 (06:10→11:34)
[2021-07-19] MEDS: GABAPENTIN 100 MG CAPSULE PO SCH ×2 (06:10→13:32)
[2021-07-19 08:54] LABS: BASO % 0.3 % (0-2.0); HEMATOCRIT 39.3 % (35.4-49); HEMOGLOBIN 12.6 GM/dL (11.7-16.9); LYMPH % 30.3 % (8-40); MCH 27.2 pg (25.7-33.7); MCHC 32.1 g/dl (32.0-35.9); MEAN CELL VOLUME 84.9 fl (80-96); NEUT % 60.4 % (42.8-82.8); PLATELET COUNT 307 10^3/uL (134-434); RBC 4.63 M/mm3 (4.00-5.60); RDW 16.2 % (11.9-15.9); WHITE BLOOD COUNT 9.5 K/mm3 (4.0-10.0)
[2021-07-19] MEDS: POLYETHYLENE GLYCOL (HEALTHYLAX) 3350 17 GM PACKET PO SCH (10:17)
[2021-07-19] MEDS: PANTOPRAZOLE 40 MG TABLET PO SCH (10:17)
[2021-07-19] MEDS: amLODIPine BESYLATE 10 MG TABLET (FP) PO SCH (10:17)
[2021-07-19] MEDS: levETIRAcetam 500 MG/5 ML ORAL SOLUTION (UNIT-DOSE CUPS) PO SCH (10:17)
[2021-07-19] MEDS: ESCITALOPRAM OXALATE 10 MG TABLET PO SCH (10:17)
[2021-07-19] MEDS: PHENYTOIN 100 MG/4 ML U-D CUP PO SCH (10:18)
[2021-07-19] MEDS: VITAMIN B COMPLEX W/C COMBO TABLET (FP) PO SCH (10:20)
[2021-07-19 14:01] VITALS: BP 145/73; PULSE 73
[2021-07-19 14:32] VITALS: TEMP 98.4
[2021-07-19 20:35] LABS: ALBUMIN 3.4 g/dl (3.4-5.0); BILIRUBIN,TOTAL 0.2 mg/dL (0.2-1); BLOOD UREA NITROGEN 28.7 mg/dL (7-18); CALCIUM 9.5 mg/dL (8.5-10.1); CREATININE 1.1 mg/dL (0.55-1.3); MAGNESIUM 2.6 mg/dL (1.8-2.4); PHOSPHOROUS 4.2 mg/dL (2.5-4.9); TOT PROT 6.6 g/dl (6.4-8.2)
== END 2021-07-19 15:58 | DRG 544 ==
LOC: JER 14:20 → JERBED 18:28 → J6S 07-17 00:38
PROVIDERS: ADMIT Internal Medicine; ATTEND Internal Medicine
DX: M80.88XA Other osteoporosis with current pathological fracture, vertebra(e), initial encounter for fracture (principal); C61 Malignant neoplasm of prostate; I10 Essential (primary) hypertension; E11.9 Type 2 diabetes mellitus without complications; R29.6 Repeated falls; K21.9 Gastro-esophageal reflux disease without esophagitis; E86.0 Dehydration
CPT/HCPCS: 36415; 71045-TC-FY; 80053; 81003; 82570; 82962; 83735; 84100; 84300; 85025; 87040; 87086; 94010; 97116-GP; 97162-GP; 99285-25; C9803-CS; J1644; U0003; U0005